=== PATIENT | male | born 1990 | race Caucasian/White ===

== ENCOUNTER 2022-02-10 13:50 | Emergency (ER) | payer OTHER, SELFPAY ==
[2022-02-10] VITALS (31 sets, daily range): BP systolic 73–133; BP diastolic 39–90; PULSE 65–109; RESP 18; TEMP 35.7; O2SAT 87–100
--- NOTE | 2022-02-10 14:36 | ED.GENADULT ---
HPI - General Adult General Time Seen by Provider: 14:36 Date Seen: 02/10/22 Chief complaint: Shortness of Breath/Dyspnea Stated complaint: Can't breath, Hard time breathing Time Seen by Provider: 02/10/22 13:59 Source: patient, RN notes reviewed and old records reviewed Mode of arrival: ambulatory Limitations: no limitations Exam Const: Vital Signs, click to edit/add: Vital Signs - 24 hr 02/10/22 14:11 Temperature 96.2 F L Pulse Rate [Pulse Oximeter] 77 Respiratory Rate 18 Blood Pressure [Ri ght Upper Arm] 133/87 Pulse Oximetry 87 L Oxygen Delivery Me thod Room Air Course Vital Signs Vital signs: Initial Vital Signs Temperature 96.2 F L 02/10/22 14:11 Temperature Source Temporal Artery Scan 02/10/22 14:11 Pulse Rate 77 02/10/22 14:11 Respiratory Rate 18 02/10/22 14:11 Blood Pressure 133/87 02/10/22 14:11 Blood Pressure Mean 102 02/10/22 14:11 Blood Pressure Position Sitting 02/10/22 14:11 Pulse Oximetry 87 L 02/10/22 14:11 Oxygen Delivery Method 02/10/22 14:11 Vital Signs Temperature 96.2 F L 02/10/22 14:11 Pulse Rate 77 02/10/22 14:11 Respiratory Rate 18 02/10/22 14:11 Blood Pressure 133/87 02/10/22 14:11 Pulse Oximetry 87 L 02/10/22 14:11 Oxygen Delivery Method 02/10/22 14:11 Temperature 96.2 F L 02/10/22 14:11 Pulse Rate 77 02/10/22 14:11 Respiratory Rate 18 02/10/22 14:11 Blood Pressure 133/87 02/10/22 14:11 Pulse Oximetry 87 L 02/10/22 14:11 Oxygen Delivery Method 02/10/22 14:11
--- NOTE | 2022-02-10 14:44 | CRLHL7_ITS ---
For Patients: As a result of the Century Cures Act, medical imaging exams and procedure reports are released immediately into your electronic medical record. You may view this report before your referring provider. If you have questions, please contact your health care provider. HISTORY: Chest pain. TECHNIQUE: Portable frontal view the chest. COMPARISON: None. FINDINGS: Low lung volumes. No airspace consolidation. No pleural effusion or pneumothorax. Pulmonary vasculature and cardiomediastinal silhouette are normal. IMPRESSION: Low lung volumes. Otherwise unremarkable. Dictated by Michele Galan MD @ 02/10/2022 3:54:53 PM (Electronically Signed)
--- NOTE | 2022-02-10 14:48 | ED.SOB ---
HPI - SOB/Dyspnea General Time Seen by Provider: 14:30 Date Seen: 02/10/22 Chief Complaint: Shortness of Breath/Dyspnea Stated Complaint: Can't breath, Hard time breathing Time Seen by Provider: 02/10/22 13:59 Source: patient, family, RN notes reviewed and old records reviewed Mode of arrival: ambulatory Limitations: no limitations History of Present Illness HPI Narrative: Moreno is a 31-year-old male with history of shortness of breath 1 month ago that improved with ibuprofen who comes to the emergency room for evaluation regarding chest pain. Patient had the onset of chest pain at approximately 1000 hours that awoke him from sleep. He shows the pain to be a cross his upper chest. It is definitely worsened with deep inspiration. He had a similar occurrence 1 month ago at which time he had an x-ray and was told that he had ?inflammation?. I do not know what that inflammation may have been from. He was seen at [facility] and we will attempt to get those records. Patient notes no recent cough fever or chills. He does not find relief in his chest discomfort if he leans forward. The shortness of breath is mostly that it is difficult to take a deep breath because it hurts. He denies back pain abdominal pain nausea vomiting. Again has no fever. Most of the interview is done with his mom present who answers most of his questions. He has not been ill with anything of late although his mom reports influenza last week for herself. He has not taken anything for pain today. Related Data Previous Rx's Medication Instructions Recorded colchicine 0.6 mg tablet 0.6 mg PO BID #180 tabs 02/10/22 Allergies Allergy/AdvReac Type Severity Reaction Status Date / Time Penicillins Allergy Mild Verified 02/10/22 19:58 Review of Systems Status of ROS: Reports: 10 or more systems reviewed and unremarkable except as noted in History and below Const: Denies: fever, chills or fatigue Eyes: Denies: change in vision ENMT: Denies: throat pain, neck pain or difficulty swallowing Cardio: Reports: chest pain and shortness of breath with exertion; Denies: palpitations, edema or swelling of feet/ankles Resp: Reports: shortness of breath; Denies: cough or wheezing GI: Denies: difficulty swallowing : Denies: painful urination Musculo: Denies: neck pain Integ/Breast: Denies: rash Neuro: Denies: headache or weakness in extremities Endo: Denies: fatigue Allergy/Immuno: Denies: wheezing PFSH PFSH Social History Smoking Status: Heavy tobacco smoker What tobacco products do you use: cigarettes Do you use any of these nicotine containing products: None Second hand tobacco smoke exposure: No How often do you have a drink containing alcohol: never AUDIT-C Alcohol total score: 0 Non-prescribed substance use: denies use Exam Narrative: Exam Narrative: Patient is awake he is alert. He is able to answer questions in 1 word sentences. His eyes are clear. Neck is supple. Heart is with a regular rate and rhythm at 70s. He has no pericardial rub. He did not feel improvement when leaning forward. Lungs are difficult to assess as he is only taking shallow breaths. But it appears that he has no crackles at this time. Abdomen soft. Lower extremities without edema. He is acting very panicky at this time. I do note that oxygen level is 100% at this time although initially 87%. He is not tachycardic nor is he hypotensive. Const: Vital Signs, click to edit/add: Vital Signs - 24 hr 02/10/22 14:11 02/10/22 14:44 02/10/22 14:11 Temperature 96.2 F L Pulse Rate 70 Pulse Rate [Pulse Oximeter] 77 Respiratory Rate 18 Blood Pressure 82/39 L Blood Pressure [Ri ght Upper Arm] 133/87 Pulse Oximetry 87 L 87 L 99 Oxygen Delivery Me thod Room Air Nasal Cannula Oxygen Flow Rate 2 02/10/22 14:12 02/10/22 14:13 02/10/22 14:17 Temperature Pulse Rate 78 83 73 Pulse Rate [Pulse Oximeter] Respiratory Rate Blood Pressure 112/69 108/60 Blood Pressure [Ri ght Upper Arm] Pulse Oximetry 100 99 100 Oxygen Delivery Me thod Oxygen Flow Rate 02/10/22 14:30 02/10/22 14:32 02/10/22 14:47 Temperature Pulse Rate 65 Pulse Rate [Pulse Oximeter] Respiratory Rate Blood Pressure 104/90 H 109/86 Blood Pressure [Ri ght Upper Arm] Pulse Oximetry 99 100 Oxygen Delivery Me thod Oxygen Flow Rate 02/10/22 15:00 02/10/22 15:02 02/10/22 15:30 Temperature Pulse Rate 69 82 Pulse Rate [Pulse Oximeter] Respiratory Rate Blood Pressure 126/77 Blood Pressure [Ri ght Upper Arm] Pulse Oximetry 95 89 95 Oxygen Delivery Me thod Room Air Oxygen Flow Rate 02/10/22 15:32 02/10/22 16:00 02/10/22 16:02 Temperature Pulse Rate 75 79 76 Pulse Rate [Pulse Oximeter] Respiratory Rate Blood Pressure 113/74 73/54 L Blood Pressure [Ri ght Upper Arm] Pulse Oximetry 100 100 100 Oxygen Delivery Me thod Oxygen Flow Rate 02/10/22 16:04 02/10/22 16:30 02/10/22 16:32 Temperature Pulse Rate 75 74 75 Pulse Rate [Pulse Oximeter] Respiratory Rate Blood Pressure 118/60 126/75 Blood Pressure [Ri ght Upper Arm] Pulse Oximetry 100 100 100 Oxygen Delivery Me thod Oxygen Flow Rate 02/10/22 17:03 02/10/22 17:05 02/10/22 17:30 Temperature Pulse Rate 83 79 80 Pulse Rate [Pulse Oximeter] Respiratory Rate Blood Pressure 125/68 Blood Pressure [Ri ght Upper Arm] Pulse Oximetry 95 100 100 Oxygen Delivery Me thod Oxygen Flow Rate 02/10/22 17:32 02/10/22 18:00 02/10/22 18:02 Temperature Pulse Rate 85 85 82 Pulse Rate [Pulse Oximeter] Respiratory Rate Blood Pressure 119/75 107/69 Blood Pressure [Ri ght Upper Arm] Pulse Oximetry 100 100 100 Oxygen Delivery Me thod Oxygen Flow Rate 02/10/22 18:03 02/10/22 18:15 02/10/22 18:30 Temperature Pulse Rate 83 81 79 Pulse Rate [Pulse Oximeter] Respiratory Rate Blood Pressure Blood Pressure [Ri ght Upper Arm] Pulse Oximetry 100 100 100 Oxygen Delivery Me thod Oxygen Flow Rate 02/10/22 18:31 02/10/22 18:45 02/10/22 19:00 Temperature Pulse Rate 83 90 89 Pulse Rate [Pulse Oximeter] Respiratory Rate Blood Pressure 113/78 Blood Pressure [Ri ght Upper Arm] Pulse Oximetry 100 100 100 Oxygen Delivery Me thod Oxygen Flow Rate 02/10/22 19:02 02/10/22 19:15 Temperature Pulse Rate 109 H 99 Pulse Rate [Pulse Oximeter] Respiratory Rate Blood Pressure 102/66 Blood Pressure [Ri ght Upper Arm] Pulse Oximetry 100 100 Oxygen Delivery Me thod Oxygen Flow Rate Documenting provider has reviewed patient's vital signs: yes Course Course Hospital Course: Differential diagnosis is broad and includes but is not limited to PE, pericarditis, COVID, pneumonia, panic attack, aortic pathology, esophagitis,. Will obtain CBC, comprehensive, D-dimer, CRP, urinalysis, EKG, chest x-ray. Triple swab as well. IV will be placed and normal saline given as well as Zofran 4 mg, Toradol 15 mg, and morphine 4 mg. Vital Signs Vital signs: Initial Vital Signs Respiratory Effort Spontaneous 02/10/22 14:00 Respiratory Depth Normal 02/10/22 14:00 Respiratory Pattern 02/10/22 14:00 Vital Signs Temperature 96.2 F L 02/10/22 14:11 Pulse Rate 70 02/10/22 14:11 Respiratory Rate 18 02/10/22 14:11 Blood Pressure 82/39 L 02/10/22 14:11 Pulse Oximetry 87 L 02/10/22 14:11 Oxygen Delivery Method 02/10/22 14:11 Oxygen Flow Rate 2 02/10/22 14:11 Temperature 96.2 F L 02/10/22 14:11 Pulse Rate 99 02/10/22 19:15 Respiratory Rate 18 02/10/22 14:11 Blood Pressure 102/66 02/10/22 19:02 Pulse Oximetry 100 02/10/22 19:15 Oxygen Delivery Method 02/10/22 15:00 Oxygen Flow Rate 2 02/10/22 14:11 MDM - SOB/Dyspnea MDM Narrative Medical decision making narrative: 1. Pericarditis-patient has had 3 sets of negative cardiac enzymes and consistent EKGs that show suresh elevation and T waves. Fortunately no evidence of PE or significant pericardial effusion. Other labs reassuring at this time. I did have this pleasure of speaking to [facility] and was able to share CT results as well as EKGs with the physician. He was able to look back on December 25 when patient presented to the clinic and noted that today's EKGs are markedly changed. At this time he suggests ibuprofen 600 mg t.i.d. x1 week as well as initiation of colchicine 0.6 mg b.i.d. for 3 months. In the ED patient did have relief with Toradol 15 mg, morphine 4 mg and Zofran. Prior to his discharge he will be given additional dose of morphine 4 mg. Finally, initial doses of colchicine as well as omeprazole for stomach protection given here in the ED. [place] 5/325 1-2 tabs p.o. q.4-6 hours p.r.n. 10. Given via instant meds for these initial hours and days of pericarditis. A check of the [employer] shows notes recent prescriptions. Patient also denies history of narcotic abuse or addiction. 2. Questionable underlying viral illness. Patient was initially very resistant to checking for COVID/influenza/RSV.. Began to ask me how many resolutions does are PCR test use. He did agree to self check but according to nursing reports really did not have an adequate sample. He has had no fever here. Of note however he did have initial hypoxia which has resolved during his time here. He is now at 100% oximetry. 3. Disposition-patient will go home with Mom. Note for work. Into the emergency room for worsening symptoms and as needed. Medical Records Attestation: I reviewed the patient's medical records. Lab Data Attestation: I reviewed the patient's lab results. Labs: Lab Results 02/10/22 02/10/22 02/10/22 Range/Units 14:08 14:08 14:08 WBC 14.37 H (4.50-11.00) K/uL RBC 4.56 (4.30-5.90) m/uL Hgb 13.3 L (13.5-17.5) gm/dL Hct 40.2 (37.0-53.0) % MCV 88 (80-100) fL MCH 29 (26-34) pg MCHC 33 (32-36) gm/dL RDW Coeff of Timbo 12.5 (11.5-15.5) % Plt Count 328 (140-440) K/uL Neut % (Auto) 80.9 H (42.0-72.0) % Lymph % (Auto) 10.6 L (20-44) % [place] % (Auto) 6.8 (0.0-11.0) % Eos % (Auto) 0.8 (0.0-7.0) % Baso % (Auto) 0.1 (0.0-3.0) % Neut # (Auto) 11.60 H (1.7-7.0) K/uL Lymph # (Auto) 1.50 (0.90-2.90) K/uL [place] # (Auto) 1.00 H (0.00-0.90) K/UL Eos # (Auto) 0.10 (0.00-0.50) K/uL Baso # (Auto) 0.00 (0.00-0.30) K/uL Abs Immat Gran (auto) 0.10 (0.00-0.30) K/uL Imm/Tot Granulo (auto) 0.8 % ESR 7 (2-15) mm/hr D-Dimer Quant (PE/DVT) (0.00-0.50) ug/ml Sodium 138 (135-149) mmol/L Potassium 4.4 (3.6-5.1) mmol/L Chloride 105 (96-114) mmol/L Carbon Dioxide 22 (20-32) mmol/L BUN 21 (5-24) mg/dL Creatinine 1.2 (0.5-1.5) mg/dL Estimated GFR 82 ml/min Glucose 177 H (60-115) mg/dL Calcium 9.1 (8.4-10.6) mg/dL Total Bilirubin 0.8 (0.1-1.5) mg/dL AST 23 (12-35) U/L ALT 18 (4-50) U/L Alkaline Phosphatase 65 (40-150) U/L C-Reactive Protein 0.8 (0.5-1.0) mg/dL Total Protein 7.8 (6.0-8.3) g/dL Albumin 4.8 (3.3-5.0) g/dL SARS-CoV-2 (PCR) (Negative) Influenza Type A (PCR) (Negative) Influenza Type B (PCR) (Negative) RSV (PCR) (Negative) POC Troponin I (0.01-0.04) ng/ml 02/10/22 02/10/22 02/10/22 Range/Units 14:08 14:08 14:15 WBC (4.50-11.00) K/uL RBC (4.30-5.90) m/uL Hgb (13.5-17.5) gm/dL Hct (37.0-53.0) % MCV (80-100) fL MCH (26-34) pg MCHC (32-36) gm/dL RDW Coeff of Timbo (11.5-15.5) % Plt Count (140-440) K/uL Neut % (Auto) (42.0-72.0) % Lymph % (Auto) (20-44) % [place] % (Auto) (0.0-11.0) % Eos % (Auto) (0.0-7.0) % Baso % (Auto) (0.0-3.0) % Neut # (Auto) (1.7-7.0) K/uL Lymph # (Auto) (0.90-2.90) K/uL [place] # (Auto) (0.00-0.90) K/UL Eos # (Auto) (0.00-0.50) K/uL Baso # (Auto) (0.00-0.30) K/uL Abs Immat Gran (auto) (0.00-0.30) K/uL Imm/Tot Granulo (auto) % ESR (2-15) mm/hr D-Dimer Quant (PE/DVT) < 0.27 (0.00-0.50) ug/ml Sodium (135-149) mmol/L Potassium (3.6-5.1) mmol/L Chloride (96-114) mmol/L Carbon Dioxide (20-32) mmol/L BUN (5-24) mg/dL Creatinine (0.5-1.5) mg/dL Estimated GFR ml/min Glucose (60-115) mg/dL Calcium (8.4-10.6) mg/dL Total Bilirubin (0.1-1.5) mg/dL AST (12-35) U/L ALT (4-50) U/L Alkaline Phosphatase (40-150) U/L C-Reactive Protein (0.5-1.0) mg/dL Total Protein (6.0-8.3) g/dL Albumin (3.3-5.0) g/dL SARS-CoV-2 (PCR) Negative SARS-CoV-2 (Negative) Influenza Type A (PCR) Negative PCR FLU A (Negative) Influenza Type B (PCR) Negative PCR FLU B (Negative) RSV (PCR) Negative PCR RSV (Negative) POC Troponin I 0.00 L (0.01-0.04) ng/ml 02/10/22 02/10/22 Range/Units 16:21 18:35 WBC (4.50-11.00) K/uL RBC (4.30-5.90) m/uL Hgb (13.5-17.5) gm/dL Hct (37.0-53.0) % MCV (80-100) fL MCH (26-34) pg MCHC (32-36) gm/dL RDW Coeff of Timbo (11.5-15.5) % Plt Count (140-440) K/uL Neut % (Auto) (42.0-72.0) % Lymph % (Auto) (20-44) % [place] % (Auto) (0.0-11.0) % Eos % (Auto) (0.0-7.0) % Baso % (Auto) (0.0-3.0) % Neut # (Auto) (1.7-7.0) K/uL Lymph # (Auto) (0.90-2.90) K/uL [place] # (Auto) (0.00-0.90) K/UL Eos # (Auto) (0.00-0.50) K/uL Baso # (Auto) (0.00-0.30) K/uL Abs Immat Gran (auto) (0.00-0.30) K/uL Imm/Tot Granulo (auto) % ESR (2-15) mm/hr D-Dimer Quant (PE/DVT) (0.00-0.50) ug/ml Sodium (135-149) mmol/L Potassium (3.6-5.1) mmol/L Chloride (96-114) mmol/L Carbon Dioxide (20-32) mmol/L BUN (5-24) mg/dL Creatinine (0.5-1.5) mg/dL Estimated GFR ml/min Glucose (60-115) mg/dL Calcium (8.4-10.6) mg/dL Total Bilirubin (0.1-1.5) mg/dL AST (12-35) U/L ALT (4-50) U/L Alkaline Phosphatase (40-150) U/L C-Reactive Protein (0.5-1.0) mg/dL Total Protein (6.0-8.3) g/dL Albumin (3.3-5.0) g/dL SARS-CoV-2 (PCR) (Negative) Influenza Type A (PCR) (Negative) Influenza Type B (PCR) (Negative) RSV (PCR) (Negative) POC Troponin I 0.00 L 0.00 L (0.01-0.04) ng/ml Imaging Data Chest x-ray: Attestation: I have reviewed the pertinent imaging results. My impression: I do not note any PE. Radiologist's impression: Thyroid and neck base unremarkable. Small amount of endotracheal debris (series 5, image 55). The airways are otherwise grossly patent. Esophagus is decompressed. The liver appears enlarged. No acute abnormality within the upper abdomen. Normal heart size. Trace pericardial fluid. No significant coronary artery calcifications. Normal course and caliber of the thoracic aorta and pulmonary arteries. Motion limits evaluation of the pulmonary arteries. Within these limitations, no pulmonary artery filling defects. No lymphadenopathy. Soft tissue within the anterior mediastinum likely represents thymus. Mild bilateral gynecomastia. There are few scattered small pulmonary nodules, for example in the posterior left upper lobe (series 5, image 80). No pulmonary consolidation. No pleural effusion or pneumothorax. No acute osseous abnormality. Impression: 1. No evidence of pulmonary embolism. Evaluation is limited at the segmental and subsegmental levels. 2. No etiology identified for patient`s chest pain. CT scan - chest: My impression: I do not note any acute [place] abnormalities Radiologist's impression: Thyroid and neck base unremarkable. Small amount of endotracheal debris (series 5, image 55). The airways are otherwise grossly patent. Esophagus is decompressed. The liver appears enlarged. No acute abnormality within the upper abdomen. Normal heart size. Trace pericardial fluid. No significant coronary artery calcifications. Normal course and caliber of the thoracic aorta and pulmonary arteries. Motion limits evaluation of the pulmonary arteries. Within these limitations, no pulmonary artery filling defects. No lymphadenopathy. Soft tissue within the anterior mediastinum likely represents thymus. Mild bilateral gynecomastia. There are few scattered small pulmonary nodules, for example in the posterior left upper lobe (series 5, image 80). No pulmonary consolidation. No pleural effusion or pneumothorax. No acute osseous abnormality. Impression: 1. No evidence of pulmonary embolism. Evaluation is limited at the segmental and subsegmental levels. 2. No etiology identified for patient`s chest pain. ECG Data Attestation: I personally reviewed and interpreted this ECG as follows: ECG interpretation date: 02/10/22 Interpretation: EKG by my read shows sinus rhythm at a rate of 73. He has peaked T-waves noted in the anterior lateral leads. As well as 2 and AVF. Suspect possible pericarditis with this picture. Corrected QT within normal limits. 2. EKG 2. Shows increasing J-point elevation as does 3. EKG. This appears to be hand elevation. Discharge Plan Discharge Clinical Impression: Pericarditis Patient Disposition: Home w/ Parent or Adult Condition: Improved Additional Instructions: For treatment of pericarditis: Colchicine 0.6 mg twice a day for 3 months.-prescription sent to [facility]. For treatment of pain: 600 mg every 8 hours x1 week. You may use [place] also known as Vicodin sparingly. This medication is in instant meds. Because ibuprofen can be hard on the stomach we have started you jean paulight on omeprazole a proton pump inhibitor. Would like you to continue this medication daily while using ibuprofen. This will be 40 mg or 2 tablets every 24 hours. For your provider: Moreno will need an echocardiogram. Trace fluid noted on CT. No other acute abnormalities on CT. Patient will also need follow-up with Cardiology. Ana I spoke with cell attendant helper from [facility]. Return to the ER for worsening symptoms and as needed. Note for no work for the next 72 hours. Prescriptions: New colchicine 0.6 mg tablet 0.6 mg PO BID Qty: 180 3RF Stand Alone Forms: [employer] Info Instructions
[2022-02-10] MEDS: MORPHINE 4 MG/ML INJ IVP ×2 (14:54→19:31)
[2022-02-10] MEDS: ONDANSETRON 2 MG/ML inj 4 MG IVP (14:54)
[2022-02-10] MEDS: KETOROLAC 15 MG/ML inj IVP (14:54)
[2022-02-10] MEDS: 0.9 % SODIUM CHLORIDE 1000 ml 1,000 ML IV (15:04)
--- NOTE | 2022-02-10 15:09 | ED.NURSE ---
Pt refusing COVID/Flu/RSV swab at this time.
[2022-02-10 15:13] LABS: Basophils Percent Auto 0.1 % (0.0-3.0); Eosinophils Percent Auto 0.8 % (0.0-7.0); Hematocrit 40.2 % (37.0-53.0); Hemoglobin* 13.3 gm/dL (13.5-17.5); Immature Granulocytes Pct Auto 0.8 %; Lymphocytes Percent Auto 10.6 % (20-44); Mean Corpuscular HGB Conc 33 gm/dL (32-36); Mean Corpuscular Hemoglobin 29 pg (26-34); Mean Corpuscular Volume 88 fL (80-100); Monocytes Percent Auto 6.8 % (0.0-11.0); Neutrophils Percent Auto 80.9 % (42.0-72.0); Platelet Count* 328 K/uL (140-440); RDW Coefficient of Variation % 12.5 % (11.5-15.5); Red Blood Count 4.56 m/uL (4.30-5.90); White Blood Count* 14.37 K/uL (4.50-11.00)
[2022-02-10 15:24] LABS: Albumin* 4.8 g/dL (3.3-5.0); Chloride* 105 mmol/L (96-114)
[2022-02-10 15:25] LABS: Potassium* 4.4 mmol/L (3.6-5.1); Sodium* 138 mmol/L (135-149)
[2022-02-10 15:26] LABS: Slide Review Reflex No
[2022-02-10 15:27] LABS: Creatinine* 1.2 mg/dL (0.5-1.5); Estimated Glomerular Filt Rate 82 ml/min
[2022-02-10 15:28] LABS: Alanine Aminotransferase* 18 U/L (4-50); Alkaline Phosphatase* 65 U/L (40-150); Aspartate Amino Transferase* 23 U/L (12-35); Bilirubin Total* 0.8 mg/dL (0.1-1.5); Blood Urea Nitrogen* 21 mg/dL (5-24); Calcium* 9.1 mg/dL (8.4-10.6); Carbon Dioxide* 22 mmol/L (20-32); Glucose* 177 mg/dL (60-115); Total Protein* 7.8 g/dL (6.0-8.3)
[2022-02-10 15:31] LABS: C Reactive Protein* 0.8 mg/dL (0.5-1.0)
[2022-02-10 15:33] LABS: D Dimer Quantitative* < 0.27 ug/ml (0.00-0.50)
--- NOTE | 2022-02-10 15:49 | CRLHL7_ITS ---
For Patients: As a result of the Century Cures Act, medical imaging exams and procedure reports are released immediately into your electronic medical record. You may view this report before your referring provider. If you have questions, please contact your health care provider. Indication: Chest pain Technique: CT PE protocol, IV contrast, Isovue 370, 95 cc IV Please note that all CT scans at this facility use dose modulation, iterative reconstruction, and/or weight-based dosing when appropriate to reduce radiation dose to as low as reasonably achievable. Comparison: None Findings: Thyroid and neck base unremarkable. Small amount of endotracheal debris (series 5, image 55). The airways are otherwise grossly patent. Esophagus is decompressed. The liver appears enlarged. No acute abnormality within the upper abdomen. Normal heart size. Trace pericardial fluid. No significant coronary artery calcifications. Normal course and caliber of the thoracic aorta and pulmonary arteries. Motion limits evaluation of the pulmonary arteries. Within these limitations, no pulmonary artery filling defects. No lymphadenopathy. Soft tissue within the anterior mediastinum likely represents thymus. Mild bilateral gynecomastia. There are few scattered small pulmonary nodules, for example in the posterior left upper lobe (series 5, image 80). No pulmonary consolidation. No pleural effusion or pneumothorax. No acute osseous abnormality. Impression: 1. No evidence of pulmonary embolism. Evaluation is limited at the segmental and subsegmental levels. 2. No etiology identified for patient`s chest pain. Please note that all CT scans at this facility use dose modulation, iterative reconstruction, and/or weight-based dosing when appropriate to reduce radiation dose to as low as reasonably achievable. Dictated by Ellis Chavez MD @ 02/10/2022 5:40:45 PM (Electronically Signed)
[2022-02-10 16:24] LABS: Erythrocyte SedimentationRate* 7 mm/hr (2-15)
[2022-02-10 16:49] LABS: PCR FLU A Negative PCR FLU A (Negative); PCR FLU B Negative PCR FLU B (Negative); PCR RSV Negative PCR RSV (Negative); SARS PCR* Negative SARS-CoV-2 (Negative)
[2022-02-10] MEDS: OMEPRAZOLE 20 MG CAPSULE DR 40 MG PO (19:31)
[2022-02-10] MEDS: COLCHICINE 0.6 MG CAPSULE PO (19:43)
== END 2022-02-10 19:57 | disposition home or self-care (01) ==
PROVIDERS: Emergency Provider Family Medicine; PCP Physician Assistant Medical
DX: I31.9 Disease of pericardium, unspecified (principal)
CPT/HCPCS: 36415; 71045; 71260; 80053; 84484; 85025; 85379; 85651; 86140; 87502; 87634; 87635; 93005; 94761; 96374; 96375; 96376; 99285; A9270; J1885; J2270; J2405; J7030; Q9967